=== PATIENT | female | born 1970 | race Two or more races ===

== ENCOUNTER 2023-03-09 15:58 | Outpatient (REF) | payer OTHER, SELFPAY ==
[2023-03-09 17:17] LABS: Anion Gap 9 (12-20); Blood Urea Nitrogen 12 mg/dL (9-16); Calcium 9.5 mg/dL (8.4-10.2); Carbon Dioxide 30 mmol/L (22-29); Chloride 108 mmol/L (96-108); Cholesterol 204 mg/dL; Estimated Glomerular Filt Rate > 60; Glucose Fasting 102 mg/dL (60-99); HDL Cholesterol 48 mg/dL; LDL Cholesterol Calculated 130 mg/dl; Sodium 143 mmol/L (135-145); Triglycerides 134 mg/dL
[2023-03-09 17:36] LABS: Erythrocyte Sedimentation Rate 8 MM/HR (0-20)
[2023-03-12 13:44] LABS: Anti Nuclear Antibody Screen NEGATIVE (NEGATIVE)
== END 2023-03-09 15:59 | disposition home or self-care (01) ==
LOC: HO.LAB 15:58
PROVIDERS: Visit Provider Psychiatry & Neurology Neurology
DX: I63.50 Cerebral infarction due to unspecified occlusion or stenosis of unspecified cerebral artery (principal)
CPT/HCPCS: 36415; 80048; 80061; 85652; 86038; 86039

== ENCOUNTER 2023-04-05 10:55 | Outpatient (REF) | payer OTHER, SELFPAY ==
--- NOTE | ~2023-04-05 | CT_ITS ---
CT HEAD WITHOUT CONTRAST CT ANGIOGRAM NECK WITH CONTRAST CT ANGIOGRAM BRAIN WITH CONTRAST CLINICAL INFORMATION: Cerebral artery multiple infarctions. COMPARISON: None available. TECHNIQUE: Test bolus sequences followed by intravenous administration 70 mL of Omnipaque 350. Helical imaging was performed in the axial plane from the thoracic inlet to the skull vertex. Delayed postcontrast imaging of the head was also performed. The data was processed at the tomography technologist workstation for generation of MIP sequences. Angled MIPs and volume rendered reformatted images were also generated at an offline 3D workstation under concurrent supervision. Stenoses are assessed in accordance with NASCET criteria unless otherwise indicated. This CT examination was performed using dose optimization techniques as appropriate, variously including the following: *Automated exposure control *Adjustment of mA and/or kV according to patient size (this includes techniques or standardized protocols for targeted exams where dose is matched to indication/reason for exam; i.e. 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 Perivascular spaces within the inferior putamen bilaterally. [There is no intracranial hemorrhage, hydrocephalus, extra-axial surface collection, midline shift, or other herniation pattern. [place] to white matter differentiation is diffusely maintained without evidence of an evolved acute territorial infarct. The basilar cisterns are preserved. No significant soft tissue abnormality. No acute osseous abnormality. Small retention cyst within the left maxillary sinus. CERVICAL SOFT TISSUES AND LUNG APICES: There is mild cervical spondylosis. NECK CTA: [There is a classic 3 vessel configuration of the aortic arch. Proximal arch vessels are non-stenotic. The vertebral arteries are codominant. No significant ostial stenosis is visualized on either side. Both vertebral arteries are widely patent throughout their extracranial cervical course. Both common and internal carotid arteries are normal in course and caliber.] BRAIN CTA: [There is normal opacification of major intracranial arteries. No focal flow-limiting stenosis nor discrete proximal large artery occlusion. No aneurysm. 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 Perivascular spaces within the inferior putamen bilaterally. - No acute arterial occlusions and no significant arterial stenoses within the head or neck.
[2023-04-05] MEDS: iohexoL 350 MG/ML 100 ML INFUS..BTL IV (12:09)
== END 2023-04-05 10:56 | disposition home or self-care (01) ==
LOC: HO.CT 10:55
PROVIDERS: PCP Internal Medicine; Visit Provider Psychiatry & Neurology Neurology
DX: Z13.89 Encounter for screening for other disorder (principal)
CPT/HCPCS: 70450; Q9967

== ENCOUNTER 2023-04-08 15:13 | Outpatient (REF) | payer OTHER, SELFPAY ==
--- NOTE | ~2023-04-08 | CT_ITS ---
CT HEAD WITHOUT CONTRAST CT ANGIOGRAM NECK WITH CONTRAST CT ANGIOGRAM BRAIN WITH CONTRAST CLINICAL INFORMATION: Cerebral artery multiple infarctions. COMPARISON: None available. TECHNIQUE: Test bolus sequences followed by intravenous administration 70 mL of Omnipaque 350. Helical imaging was performed in the axial plane from the thoracic inlet to the skull vertex. Delayed postcontrast imaging of the head was also performed. The data was processed at the geodetic surveyor technologist workstation for generation of MIP sequences. Angled MIPs and volume rendered reformatted images were also generated at an offline 3D workstation under concurrent supervision. Stenoses are assessed in accordance with NASCET criteria unless otherwise indicated. This CT examination was performed using dose optimization techniques as appropriate, variously including the following: *Automated exposure control *Adjustment of mA and/or kV according to patient size (this includes techniques or standardized protocols for targeted exams where dose is matched to indication/reason for exam; i.e. 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 Perivascular spaces within the inferior putamen bilaterally. [There is no intracranial hemorrhage, hydrocephalus, extra-axial surface collection, midline shift, or other herniation pattern. [place]una to white matter differentiation is diffusely maintained without evidence of an evolved acute territorial infarct. The basilar cisterns are preserved. No significant soft tissue abnormality. No acute osseous abnormality. Small retention cyst within the left maxillary sinus. CERVICAL SOFT TISSUES AND LUNG APICES: There is mild cervical spondylosis. NECK CTA: [There is a classic 3 vessel configuration of the aortic arch. Proximal arch vessels are non-stenotic. The vertebral arteries are codominant. No significant ostial stenosis is visualized on either side. Both vertebral arteries are widely patent throughout their extracranial cervical course. Both common and internal carotid arteries are normal in course and caliber.] BRAIN CTA: [There is normal opacification of major intracranial arteries. No focal flow-limiting stenosis nor discrete proximal large artery occlusion. No aneurysm. 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 Perivascular spaces within the inferior putamen bilaterally. - No acute arterial occlusions and no significant arterial stenoses within the head or neck.
[2023-04-08] MEDS: iohexoL 350 MG/ML 100 ML INFUS..BTL 70 ML IV (16:01)
== END 2023-04-08 15:14 | disposition home or self-care (01) ==
LOC: HO.CT 15:13
PROVIDERS: PCP Internal Medicine; Visit Provider Psychiatry & Neurology Neurology
DX: I63.50 Cerebral infarction due to unspecified occlusion or stenosis of unspecified cerebral artery (principal)
CPT/HCPCS: 70496; 70498; Q9967